=== PATIENT | male | born 1960 | race Caucasian/White ===

== ENCOUNTER → 2023-08-03 | Outpatient (CLI) | payer OTHER ==
--- NOTE | 2023-08-06 13:21 | P.HOLTER ---
24 Hour Holter monitor note: Patient wore a Holter monitor for 24 hrs from 08/03/2023 through 08/24/2023. Findings: Patient's baseline heart rate was normal sinus rhythm. There were no signficant atrial fibrillation, atrial flutter, or ventricular tachycardia episodes. There were no significant pauses greater than 2 seconds. Patient's minimum heart rate was 65. Patient's maximum heart rate was 119. Patient's average heart rate was 83. there were rare asymptomatic PVCs and PACs. There was one patient activated event which corresponded with sinus tachycardia Conclusions: 24-hour Holter monitor showing normal sinus rhythm, rare PACs and PVCs and patient activated event corresponded with normal sinus rhythm/sinus tachycardia.
--- NOTE | 2023-08-11 12:12 | HM ---
24 Hour Holter monitor note: Patient wore a Holter monitor for 24 hrs from 08/03/2023 through 08/24/2023. Findings: Patient's baseline heart rate was normal sinus rhythm. There were no significant atrial fibrillation, atrial flutter, or ventricular tachycardia episodes. There were no significant pauses greater than 2 seconds. Patient's minimum heart rate was 65. Patient's maximum heart rate was 119. Patient's average heart rate was 83. there were rare asymptomatic PVCs and PACs. There was one patient activated event which corresponded with sinus tachycardia Conclusions: 24-hour Holter monitor showing normal sinus rhythm, rare PACs and PVCs and patient activated event corresponded with normal sinus rhythm/sinus tachycardia. [facility]
== END | disposition home or self-care (01) ==
LOC: RADECHMAIN 07:41
PROVIDERS: ATTEND Family Medicine
DX: I49.3 Ventricular premature depolarization (principal); R00.0 Tachycardia, unspecified; I49.1 Atrial premature depolarization
CPT/HCPCS: 93225; 93226

== ENCOUNTER → 2023-08-11 | Outpatient (CLI) | payer OTHER ==
--- NOTE | 2023-08-11 17:45 | CT ---
EXAMINATION TYPE: CT angio head CT DLP: 127.10 mGycm, Automated exposure control for dose reduction was used. DATE OF EXAM: 08/11/2023 9:37 AM COMPARISON: None. CLINICAL INDICATION:Male, 63 years old with history of R55 SYNCOPE AND COLLAPSE; PHH, Sudden rt eye b lindness x1yr ago. Suspected stroke. Lt eye visual changes as well. TECHNIQUE: CT angio head Axially acquired helical CT angiogram was obtained. Axial images are supplem ented with 3D reconstructions which were post-processed at an independent workstation. NASCET criteri a used. Contrast used:100 ml mL of Isovue 370 with IV Contrast, none Oral contrast used: none FINDINGS: Vertebral arteries: The vertebral arteries are patent. Vertebral artery dominance: Codominant Basilar artery: The basilar artery is intact. The basilar artery bifurcation is normal. Internal Carotid arteries: The cervical, petrous, cavernous and supraclinoid segments are normal. YOVANY: Patent with no evidence of aneurysm. ACOM: Present without evidence of aneurysm. MCA: Patent with no evidence of aneurysm. CURATORIAL SPECIALIST: Patent with no evidence of aneurysm. origin of the right posterior cerebral artery. PCOM: origin of the right posterior cerebellar artery. Hypoplastic left. Dural sinuses: Patent. Other: Paranasal sinus disease with mucosal thickening/secretions throughout the paranasal sinuses. IMPRESSION: No evidence of high-grade stenosis or intracranial aneurysm.
--- NOTE | 2023-08-11 18:48 | CTL ---
EXAMINATION TYPE: CT Low Dose Lung DATE OF EXAM: 08/11/2023 9:27 AM CLINICAL INDICATION:Male, 63 years old with history of Z87.891 personal hx of tobacco use; Current sm oker. 1PPD x40yrs. , history of tobacco use. COMPARISON: None. TECHNIQUE: Multiple axial non-contrast scans were obtained from approximately the lung apices through the upper abdomen. Coronal and sagittal reformatted images were obtained. Low dose technique was uti lized. CT DLP: 97.5 mGycm, Automated exposure control for dose reduction was used. CT Contrast: Contrast used: None Oral contrast used: None FINDINGS: ======== Lack of intravenous contrast and low dose technique limits the evaluation of the vascular and soft ti ssue structures. LUNGS: No evidence of pulmonary fibrosis. No evidence of focal consolidation, pneumothorax or pleural effusion. Nodules: RUL: None. RML: None. RLL: None. NICHOLE: None. LLL: Calcific granuloma series 4 image 45. AIRWAY: Patent and unremarkable. HEART: Size within normal limits. MEDIASTINUM: No gross evidence of adenopathy. VASCULATURE: No aortic aneurysm. MUSCULOSKELETAL: Mild disc degeneration changes are present throughout the thoracolumbar spine. SOFT TISSUES/LYMPH NODES: Mild gynecomastia changes bilaterally. LOWER NECK: No significant findings. UPPER ABDOMEN: No significant findings. IMPRESSION: 1. No clinically significant pulmonary nodules. 2. Mild/moderate emphysema changes. CT LUNG RAD AND CT CHEST RECOMMENDATION: Lung-Rad 2 Benign Appearance or Behavior: Continue annual sc reening with LDCT in 12 months. S Modifier (other clinically significant findings): None Recommend smoking cessation (if current smoker), or continuation of smoking cessation (if prior smoke r). Annual screening for lung cancer with low-dose computed tomography is recommended in adults ages 55 to 77 years who have a 30 pack-year smoking history and currently smoke or have quit within the pa st 15 years. Screening should be discontinued once a person has not smoked for 15 years or develops a health problem that substantially limits life expectancy or the ability or willingness to have curat nicole lung surgery. Lung rads 2021 [email or web address]
== END | disposition home or self-care (01) ==
LOC: RADCTMAIN 08:54
PROVIDERS: ATTEND Family Medicine
DX: Z12.2 Encounter for screening for malignant neoplasm of respiratory organs (principal); J43.9 Emphysema, unspecified; R55 Syncope and collapse; H53.9 Unspecified visual disturbance; G81.94 Hemiplegia, unspecified affecting left nondominant side; F17.210 Nicotine dependence, cigarettes, uncomplicated
CPT/HCPCS: 70496; 71271; Q9967

== ENCOUNTER → 2023-12-11 | Outpatient (CLI) | payer OTHER ==
--- NOTE | 2024-01-09 07:43 | US ---
Site ID [facility] Patient Tate Edmondson D ID [id number] Age/Gender: 63Y, M Order # N/A Procedure US abdomen complete Date 12/11/2023 9:31:00 AM EXAMINATION TYPE: US abdomen complete DATE OF EXAM: 12/30/2023 COMPARISON: None, please note PACS Production downtime occurred during the radiologist interpretation of these images with limited priors/reports. CLINICAL INDICATION: Male, 63 year old with history of loss of appetite. TECHNIQUE: Multiple sonographic images of the abdomen are obtained. FINDINGS: EXAM MEASUREMENTS: Liver Length: 16.5 cm Gallbladder Wall: 0.2 cm CBD: 0.4 cm Spleen: 8.7 cm Right Kidney: 10.8 x 4.9 x 4.4 cm Left Kidney: 10.1 x 5.9 x 3.1 cm VEHICLE REFINISHER NOTES: Pancreas: wnl Liver: wnl Gallbladder: wnl Evidence for sonographic Glaser's sign: No CBD: wnl Spleen: wnl Right Kidney: wnl Left Kidney: No hydronephrosis. Inferior pole thin-walled anechoic 3.6 x 3.6 x 3.6 cm cyst. Upper IVC: wnl Abd Aorta: wnl The liver is homogenous. The intrahepatic portion of the IVC and proximal abdominal aorta are within normal limits. There is no evidence of cholelithiasis. Common bile duct is unremarkable. The visu alized portions of the pancreas are homogenous. The spleen is unremarkable. Kidneys are symmetric a nd free of hydronephrosis. Inferior pole left kidney 3.6 cm simple cyst. IMPRESSION: 1. No acute process. 2. Left renal simple cyst.
== END | disposition home or self-care (01) ==
LOC: RADUSWWP 12:00
PROVIDERS: ATTEND Family Medicine
DX: R63.0 Anorexia (principal); N28.1 Cyst of kidney, acquired; R14.0 Abdominal distension (gaseous)
CPT/HCPCS: 76700

== ENCOUNTER 2024-10-21 09:46 | Emergency (ER) | payer MEDICARE, OTHER ==
[2024-10-21 09:54] VITALS: TEMP 97.9
--- NOTE | 2024-10-21 10:28 | ED ---
General Adult HPI - General Chief complaint: Syncope Stated complaint: syncope Time Seen by Provider: 10/21/24 09:55 Source: patient Mode of arrival: ambulatory Limitations: no limitations - History of Present Illness Initial comments: Dictation was produced using [employer] dictation software. please excuse any grammatical, word or spelling errors. Chief Complaint: 64-year-old male with syncopal episode History of Present Illness: Patient 64-year-old male has past medical history of stroke. He was having a beer with his friends last night when all of a sudden he passed out. Patient does not recall event or was told by his friends that he passed out. Patient states that 1 hour prior to the event he had a marijuana gummy. He consumes marijuana Gummies regularly. Patient Nuys any symptoms at this time. Denies any history of heart conditions or heart failure. The ROS documented in this emergency department record has been reviewed and con firmed by me. Those systems with pertinent positive or negative responses have been documented in the HPI. All other systems are other negative and/or noncontributory. - Related Data Allergies Allergy/AdvReac Type Severity Reaction Status Date / Time No Known Allergies Allergy Verified 10/21/24 09:53 Review of Systems ROS Statement: Those systems with pertinent positive or pertinent negative responses have been documented in the HPI. ROS Other: All systems not noted in ROS Statement are negative. Past Medical History Past Medical History: CVA/TIA Past Surgical History: No Surgical Hx Reported Smoking Status: Current every day smoker Past Alcohol Use History: Occasional Past Drug Use History: Marijuana General Exam - General Exam Comments Initial Comments: PHYSICAL EXAM: General Impression: Alert and oriented x3, not in acute distress HEENT: Normocephalic atraumatic, extra-ocular movements intact, pupils equal and reactive to light bilaterally, mucous membranes moist. Cardiovascular: Heart regular rate and rhythm Chest: Able to complete full sentences, no retractions, no tachypnea Abdomen: abdomen soft, non-tender, non-distended, no organomegaly Musculoskeletal: Pulses present and equal in all extremities, no peripheral edema Motor: no focal deficits noted Neurological: CN II-XII grossly intact, no focal motor or sensory deficits noted Skin: Intact with no visualized rashes Psych: Normal affect and mood Limitations: no limitations Course Vital Signs 10/21/24 10/21/24 09:49 10:07 Temperature 97.9 F Pulse Rate 77 70 Respiratory 18 16 Rate Blood Pressure 173/89 145/81 O2 Sat by Pulse 97 98 Oximetry EKG Findings - EKG Comments: EKG Findings:: My EKG interpretation: Ventricular rate 75, sinus rhythm, UT 138, QRS 84, QTc 412. No UT prolongation, no QTC prolongation, no ST or T-wave changes noted. Overall, this EKG is unremarkable Medical Decision Making - Medical Decision Making Was pt. sent in by a medical professional or institution (, PA, MS SQL DEVELOPER, urgent care, hospital, or half-way...) When possible be specific @ -[No] Did you speak to anyone other than the patient for history (EMS, parent, family, police, friend...)? What history was obtained from this source @ -[No] Did you review nursing and triage notes (agree or disagree)? Why? @ -[I reviewed and agree with nursing and triage notes] Were old charts reviewed (outside hosp., previous admission, EMS record, old EKG, old radiological studies, urgent care reports/EKG's, half-way records)? Report findings @ -[No old charts were reviewed] Differential Diagnosis (chest pain, altered mental status, abdominal pain women, abdominal pain men, vaginal bleeding, musculoskeletal, weakness, fever, dyspnea, syncope, headache, dizziness, GI bleed, back pain, seizure, CVA, palpatations, mental health)? @ -Differential Syncope: Valvular disease, hypertrophic cardiomyopathy, pulmonary embolism, tamponade, tachycardia, bradycardia, MN, hypovolemia, hemorrhage, dissection, anemia, intracranial hemorrhage, seizure, hypoglycemia, carbon monoxide poisoning, this is not meant to be an all-inclusive list. EKG interpreted by me (3pts min.). @ -See above X-rays interpreted by me (1pt min.). @ -Chest x-ray nonacute CT interpreted by me (1pt min.). @ -[None done] U/S interpreted by me (1pt. min.). @ -[None done] What testing was considered but not performed or refused? (CT, X-rays, U/S, labs)? Why? @ -[None] What meds were considered but not given or refused? Why? @ -[None] Was smoking cessation discussed for >3mins.? @ -[No] Were there social determinants of health that impacted care today? How? (Homelessness, low income, unemployed, alcoholism, drug addiction, transportation, low edu. Level, literacy, decrease access to med. care, long term, rehab)? @ -[No] Was there de-escalation of care discussed even if they declined (Discuss DNR or withdrawal of care, Hospice)? DNR status @ -[No] What co-morbidities impacted this encounter? (DM, HTN, Smoking, COPD, CAD, Cancer, CVA, ARF, Chemo, Hep., AIDS, mental health diagnosis, sleep apnea, morbid obesity)? @ -[None] Was patient admitted / discharged? Hospital course, mention meds given and route, prescriptions, significant lab abnormalities, going to OR and other pertinent info. @ -64-year-old male with no known cardiac history presents to the ER after syncopal episode. Vital signs stable. Patient well-appearing at the bedside. Laboratory evaluation is unremarkable. Observe the emergency department for approximate 3 hours. Reevaluated bedside 12:40 PM clinically stable to condition. Patient has no high risk features. Patient discharged advised follow-up with primary care doctor. Did you discuss the management of the patient with other professionals (payam childs i.e. , PA, MS SQL DEVELOPER, lab, RT, psych nurse, adoption social worker, fashion model, teacher, civilian jail officer, case monitor)? Give summary @ -[No] Was critical care preformed (if so, how long)? @ -[No] Undiagnosed new problem with uncertain prognosis? @ -[No] Drug Therapy requiring intensive monitoring for toxicity (Heparin, Nitro, Insulin, Cardizem)? @ -[No] Were any procedures done? @ -[No] Diagnosis/symptom? Acute, or Chronic, or Acute on Chronic? Uncomplicated (without systemic symptoms) or Complicated (systemic symptoms)? @ -Syncope, no high risk features Side effects of treatment? @ -[No] Exacerbation, Progression, or Severe Exacerbation? @ -[No] Poses a threat to life or bodily function? How? (Chest pain, USA, MN, pneumonia, PE, COPD, DKA, ARF, appy, cholecystitis, CVA, Diverticulitis, Homicidal, Suicidal, threat to staff... and all critical care pts) @ -[No] - Lab Data Result diagrams: 10/21/24 11:44 10/21/24 11:44 Lab Results 10/21/24 10/21/24 10/21/24 Range/Units 11:44 11:44 11:44 WBC 13.37 H (4.50-10.00) 10*3/uL RBC 4.92 (4.40-5.60) 10*6/uL Hgb 15.6 (13.0-17.0) g/dL Hct 45.0 (39.6-50.0) % MCV 91.5 (80.0-97.0) fL MCH 31.7 (27.0-32.0) pg MCHC 34.7 (32.0-37.0) g/dL Plt Count 320 (140-440) 10*3/uL MPV 8.7 L (9.5-12.2) fL Immature Gran % (Auto) 0.7 % Neutrophils % 65.7 % Lymphocytes % 23.3 % Monocytes % 6.2 % Eosinophils % 3.3 % Basophils % 0.8 % Immature Gran # 0.09 H (0.00-0.04) 10*3/uL Neutrophils # 8.78 H (1.80-7.70) 10*3/uL Lymphocytes # 3.12 (0.90-5.00) 10*3/uL Monocytes # 0.83 (0.20-1.00) 10*3/uL Eosinophils # 0.44 H (0.04-0.35) 10*3/uL Basophils # 0.11 H (0.00-0.10) 10*3/uL Sodium 137 (137-145) mmol/L Potassium 4.2 (3.5-5.1) mmol/L Chloride 103 (98-107) mmol/L Carbon Dioxide 28 (22-30) mmol/L Anion Gap 6 mmol/L BUN 7 L (9-20) mg/dL Creatinine 1.07 (0.66-1.25) mg/dL Est GFR (CKD-EPI)AfAm 85 (>60 ml/min/1.73 sqM) Est GFR (CKD-EPI)NonAf 73 (>60 ml/min/1.73 sqM) Glucose 104 H (74-99) mg/dL Calcium 9.3 (8.4-10.2) mg/dL Total Bilirubin 0.7 (0.2-1.3) mg/dL AST 30 (17-59) U/L ALT 26 (4-49) U/L Alkaline Phosphatase 93 (38-126) U/L Troponin I <0.012 (0.000-0.034) ng/mL Total Protein 6.7 (6.3-8.2) g/dL Albumin 4.1 (3.5-5.0) g/dL Disposition Clinical Impression: Vasovagal syncope Disposition: HOME SELF-CARE Condition: Good Instructions (If sedation given, give patient instructions): Syncope (ED) Is patient prescribed a controlled substance at d/c from ED?: No Referrals: Hafsa Jernigan MD [Primary Care Provider] - 1-2 days Time of Disposition: 12:39
[2024-10-21 10:49] VITALS: RESP 16
[2024-10-21 11:48] LABS: Basophils # (A) 0.11 10*3/uL (0.00-0.10); Basophils % (A) 0.8 %; Eosinophils # (A) 0.44 10*3/uL (0.04-0.35); Eosinophils % (A) 3.3 %; HGB 15.6 g/dL (13.0-17.0); Lymphocytes # (A) 3.12 10*3/uL (0.90-5.00); Lymphocytes % (A) 23.3 %; MCH 31.7 pg (27.0-32.0); MCHC 34.7 g/dL (32.0-37.0); MCV 91.5 fL (80.0-97.0); Mean Platelet Volume 8.7 fL (9.5-12.2); Monocytes # (A) 0.83 10*3/uL (0.20-1.00); Monocytes % (A) 6.2 %; Neutrophils # (A) 8.78 10*3/uL (1.80-7.70); Neutrophils % (A) 65.7 %; Platelet Count 320 10*3/uL (140-440); RBC 4.92 10*6/uL (4.40-5.60); RDW 12.6 % (11.5-14.5); WBC 13.37 10*3/uL (4.50-10.00)
[2024-10-21 12:05] LABS: ALT 26 U/L (4-49); AST 30 U/L (17-59); African American GFR (CKD) 85 (>60 ml/min/1.73 sqM); Albumin 4.1 g/dL (3.5-5.0); Alkaline Phosphatase 93 U/L (38-126); Anion Gap 6 mmol/L; Blood Urea Nitrogen 7 mg/dL (9-20); Calcium 9.3 mg/dL (8.4-10.2); Carbon Dioxide 28 mmol/L (22-30); Chloride 103 mmol/L (98-107); Glucose 104 mg/dL (74-99); Non-African American GFR(CKD) 73 (>60 ml/min/1.73 sqM); Potassium 4.2 mmol/L (3.5-5.1); Sodium 137 mmol/L (137-145); Total Bilirubin 0.7 mg/dL (0.2-1.3); Total Protein 6.7 g/dL (6.3-8.2)
--- NOTE | 2024-10-21 12:30 | XR ---
EXAMINATION TYPE: XR chest 2V DATE OF EXAM: 10/21/2024 12:10 PM COMPARISON: None. CLINICAL INDICATION: Male, 64 years old with history of syncope: Shortness of breath TECHNIQUE: XR chest 2V views of the chest are obtained. FINDINGS: Scattered senescent parenchymal changes noted. Hyperinflation compatible with COPD. No evidence for infiltrate. No evidence for atelectasis. Heart size is stable. Mediastinal structures are stable and grossly unremarkable. No evidence for hilar prominence. Degenerative changes dorsal spine. IMPRESSION: 1. No evidence for acute pulmonary disease. [facility], , 10/21/2024 12:28 PM
[2024-10-21 12:45] VITALS: BP 153/93; PULSE 72
== END 2024-10-21 12:47 | disposition home or self-care (01) ==
LOC: EC 09:46
DX: R55 Syncope and collapse (principal); F17.200 Nicotine dependence, unspecified, uncomplicated
CPT/HCPCS: 36415; 71046; 80053; 84484; 85025; 93005; 99284